=== PATIENT | female | born 1990 | race African-American/Black ===

== ENCOUNTER 2022-06-23 02:37 | Emergency (ER) | payer MEDICAID, OTHER ==
[~2022-06-23] VITALS: Ht 172.7 cm; Wt 105.3 kg
[2022-06-23 03:23] VITALS: BP 127/90
[2022-06-23] MEDS ORDERED: TETRACAINE 0.5% OPHTH DROPS 4ML RIGHTEYE ONE (10:15)
[2022-06-23] MEDS ORDERED: FLUORESCEIN SODIUM 1MG/STRIP RIGHTEYE ONE (11:00)
[2022-06-23] MEDS ORDERED: SULF1TAB48 MT (11:10)
[2022-06-23] MEDS ORDERED: AM250 PO (11:12)
== END 2022-06-23 12:10 | disposition home or self-care (01) ==
LOC: ER 02:37
DX: H00.013 Hordeolum externum right eye, unspecified eyelid (principal); J45.909 Unspecified asthma, uncomplicated; Z91.013 Allergy to seafood; Z86.59 Personal history of other mental and behavioral disorders
CPT/HCPCS: 99283

== ENCOUNTER 2022-08-29 12:21 | Emergency (ER) | payer MEDICAID ==
[~2022-08-29] VITALS: Ht 170.2 cm; Wt 82.0 kg
[~2022-08-29 12:21] MED LIST: AM250 PO; SULF1TAB48 MT
[2022-08-29 12:24] VITALS: BP 132/78
[2022-08-29] MEDS ORDERED: ALBUTEROL (0.083%) 2.5MG/3ML NEB HHN STA (15:39)
[2022-08-29] MEDS ORDERED: HYDROCODONE/ACETAMINOPHEN 5/325MG TABLET PO STA (15:39)
[2022-08-29] MEDS ORDERED: IPRATROPIUM BROMIDE (0.02%) 0.5MG/2.5ML NEB HHN STA (15:39)
[2022-08-29] MEDS ORDERED: IBUPROFEN 600MG TABLET PO STA (15:39)
[2022-08-29] MEDS ORDERED: PREDNISONE 20MG TABLET PO STA (15:39)
[2022-08-29 16:47] LABS: BASOPHILS % 0.7 % (0.0-2.0); EOSINOPHILS % 4.8 % (0.0-5.0); HEMATOCRIT. 37.7 % (36.0-48.0); HEMOGLOBIN. 12.7 g/dL (12.0-16.0); LYMPHOCYTES % 49.3 % (20.0-50.0); MEAN CORPUSCULAR HEMOGLOBIN 31.6 pg (28.0-32.0); MEAN CORPUSCULAR VOLUME 93.5 fL (81.0-99.0); MEAN PLATELET VOLUME 9.4 fl (7.4-10.4); MONOCYTES % 10.7 % (2.0-8.0); NEUTROPHILS % 34.5 % (40.0-76.0); PLATELET 228 x1000/uL (130-400); RED BLOOD CELL COUNT 4.03 mill/uL (4.2-5.4); RED CELL DISTRIBUTION WIDTH 12.7 % (11.6-14.6)
[2022-08-29 16:58] LABS: CHLORIDE 106 mEq/L (98-107)
[2022-08-29 17:12] LABS: HCG SCREEN NEGATIVE
[2022-08-29] MEDS ORDERED: IBUP-2030 MT (17:26)
[2022-08-29] MEDS ORDERED: P20 MT (17:26)
[2022-08-29] MEDS ORDERED: HYDR-4001 MT (17:26)
[2022-08-29] MEDS ORDERED: ALBU90AE INH (17:26)
== END 2022-08-29 17:48 | disposition home or self-care (01) ==
LOC: ER 12:21
DX: J45.901 Unspecified asthma with (acute) exacerbation (principal); N94.6 Dysmenorrhea, unspecified; R55 Syncope and collapse; R56.9 Unspecified convulsions; F17.210 Nicotine dependence, cigarettes, uncomplicated
CPT/HCPCS: 36415; 71045; 80053; 81025; 84484; 84703; 85025; 93005; 94640; 99285; J7512; Z7610

== ENCOUNTER 2023-11-01 15:16 | Emergency (ER) | payer MEDICAID ==
[~2023-11-01] VITALS: Ht 172.7 cm; Wt 117.0 kg
[~2023-11-01 15:16] MED LIST changes: +ALBU90AE INH; +HYDR-4001 MT; +IBUP-2030 MT; +P20 MT
[2023-11-01 15:28] VITALS: BP 134/80; PULSE 76; RESP 16; TEMP 98.1; O2SAT 99
== END 2023-11-01 22:04 | disposition left against medical advice (07) ==
LOC: ER 15:16
DX: R10.30 Lower abdominal pain, unspecified (principal); J45.909 Unspecified asthma, uncomplicated; F12.10 Cannabis abuse, uncomplicated
CPT/HCPCS: 99281

== ENCOUNTER 2025-03-06 18:22 | Emergency (ER) | payer MEDICAID ==
[~2025-03-06] VITALS: Ht 172.7 cm; Wt 112.0 kg
[2025-03-06 18:28] VITALS: O2SAT 98
[2025-03-06 21:14] LABS: BASOPHILS % 0.8 % (0.0-2.0); EOSINOPHILS % 3.7 % (0.0-5.0); HEMATOCRIT. 34.2 % (36.0-48.0); HEMOGLOBIN. 11.4 g/dL (12.0-16.0); LYMPHOCYTES % 49.6 % (20.0-50.0); MEAN PLATELET VOLUME 9.9 fl (7.4-10.4); MONOCYTES % 8.9 % (2.0-8.0); NEUTROPHILS % 37.0 % (40.0-76.0); PLATELET 186 x1000/uL (130-400); RED BLOOD CELL COUNT 3.58 mill/uL (4.2-5.4); RED CELL DISTRIBUTION WIDTH 13.1 % (11.6-14.6)
[2025-03-06 21:28] LABS: CREATININE 0.8 mg/dL (0.6-1.0); HCG SCREEN NEGATIVE; UREA NITROGEN BLOOD 10 mg/dL (9-23)
[2025-03-06 21:30] LABS: B-HCG QUANTITATIVE < 1 mIU/mL (<6)
[2025-03-06] MEDS: OXYCODONE HCL 5MG TABLET PO ONE (23:28)
[2025-03-06 23:29] VITALS: BP 134/89; PULSE 73; RESP 15; TEMP 36.9; O2SAT 98
[2025-03-06] MEDS ORDERED: OXYC-662 MT (23:37)
== END 2025-03-06 23:40 | disposition home or self-care (01) ==
LOC: ER 18:22
DX: O20.9 Hemorrhage in early pregnancy, unspecified (principal); F12.90 Cannabis use, unspecified, uncomplicated; J45.909 Unspecified asthma, uncomplicated; Z79.899 Other long term (current) drug therapy; N89.8 Other specified noninflammatory disorders of vagina; Z91.013 Allergy to seafood; Z3A.01 Less than 8 weeks gestation of pregnancy
CPT/HCPCS: 80048; 84703; 84702; 85025; 86850; 86900; 86901; 36415; 76830; 76856; 99284; Z7610